=== PATIENT | male | born 1960 | race African-American/Black ===

== ENCOUNTER → 2022-07-28 15:06 | Outpatient (BNVA) | payer MEDICARE, SELFPAY | PROVIDERS: PCP Internal Medicine; Visit Provider Urology | DX: N52.9 Male erectile dysfunction, unspecified (principal); N48.6 Induration penis plastica | CPT/HCPCS: 99212 ==

== ENCOUNTER → 2022-11-12 14:24 | Outpatient (BNVA) | payer MEDICARE, SELFPAY | PROVIDERS: PCP Internal Medicine; Visit Provider Urology | DX: N52.9 Male erectile dysfunction, unspecified (principal); N48.6 Induration penis plastica | CPT/HCPCS: Q3014 ==

== ENCOUNTER → 2023-02-11 11:31 | Outpatient (BNVA) | payer MEDICARE, SELFPAY | PROVIDERS: PCP Internal Medicine; Visit Provider Urology | DX: N52.9 Male erectile dysfunction, unspecified (principal); N48.6 Induration penis plastica | CPT/HCPCS: Q3014 ==

== ENCOUNTER 2023-08-02 12:13 | Outpatient (REF) | payer MEDICARE, SELFPAY ==
[2023-08-02 15:14] LABS: Prostate Specific Antigen 4.68 ng/mL (<0.05-4.0)
== END 2023-08-02 12:14 | disposition home or self-care (01) ==
LOC: HO.LAB 12:13
PROVIDERS: PCP Internal Medicine; Visit Provider Urology
DX: Z12.5 Encounter for screening for malignant neoplasm of prostate (principal); N52.9 Male erectile dysfunction, unspecified
CPT/HCPCS: 36415; 84153

== ENCOUNTER 2023-08-19 10:46 | Outpatient (AMB) | payer MEDICARE, SELFPAY ==
--- NOTE | 2023-08-19 10:48 | A.OFFVIS_ITS ---
Intake Intake Visit Reasons: 6m/PSA(set) Intake Note: Call Allergies Sulfa (Sulfonamide Antibiotics) Allergy (Mild, Verified 08/19/23 10:48) Unknown Sulfacet-R Allergy (Unknown, Uncoded 08/19/23 10:48) Unknown Medication List - Last Reconciled 08/19/23 by Luciano Pandya MD atorvastatin 40 mg PO DAILY tadalafil 20 mg PO ONCE PRN 30 days tadalafil 5 mg PO DAILY 90 days HPI HPI Comments History of Present Illness Details Modesto DOWNEY is a very pleasant male. He is a patient of Dr Navarro. He is seen for the following urologic conditions - erectile dysfunction - Peyronie's disease Telemedicine Evaluation 15 min Consultation Maven[employer] Neto Video attempted Borderline elevation of PSA 08/20 4.7 Four month follow-up PSA Refill tadalafil Instructions for no coffee morning of test, and no sex the night before. Has been taking caffeine pills to lose weight Erectile dysfunction:? Peyronie's disease stable ?Good response to daily tadalafil ? He presents today for?for continued evaluation and management of erectile dysfunction.? Symptoms have been present for/since?over several years.? Current treatment includes?Viagra/sildenafil.? At this time he experiences erections?12/16 are partial and adequate for vaginal penetration, that undergo rapid detumesence after penetration, HAKEEM 12- 16 Mild-Moderate ED.? Currently they are?has a partner who is interested in treatment.? Overall he is ?satisfied with the current management.? Therapeutic plan includes?increasing dose of oral medication.? Peyronie's Disease:? Stabilized and curve reduced - still functional ? The patient presents for?further evaluation for penile disorder.? Primary complaint is ?penile curvature, to the right, dorsally.? At this time he experiences?partial erections sufficient for penetrative intercourse.? [place] has?is possible but painful.? Prior management includes?no treatment to date.? Natural history of Peyronie's and treatment options have bee?use of vacuum device protocol, use of inflammatory washing machine striper Review of Systems Const All systems reviewed & are unremarkable except as noted in HPI and below Reports no additional complaints Resp Reports no additional complaints GI Reports no additional complaints Reports as per HPI Musc Reports no additional complaints Physical Exam Telemedicine evaluation Appropriate responses Regular breathing rate and rhythm HEENT Head: Yes normal to inspection Ears: hearing grossly normal bilaterally Eyes General: appearance normal, both eyes and all related structures Neck Neck: Yes normal visual inspection Chest Chest palpation & inspection: normal inspection of the chest Resp Effort & Inspection: normal respiratory effort and able to speak in complete sentences Assessment & Plan Assessment & Plan (1) Elevated PSA: Code(s): R97.20 - Elevated prostate specific antigen [PSA] (2) Erectile dysfunction: Code(s): N52.9 - Male erectile dysfunction, unspecified (3) Peyronie's disease: Code(s): N48.6 - Induration penis plastica Plan Four month follow-up PSA Orders: Orders PSA,Total (Free>4and<10) 4 Months R97.20 - Elevated prostate specific antigen [PSA] Medications: Refilled 2 tadalafil 5 mg PO DAILY 90 days 90 tabs 1RF sexual activity N52.9 - Male erectile dysfunction, unspecified tadalafil On demand medication take 60 minutes before intended activity 20 mg PO ONCE 30 days PRN 30 tabs 0RF sexual activity N52.9 - Male erectile dysfunction, unspecified Patient Instructions: Imaging studies, laboratory and physical exam results were discussed and reviewed in detail. No major barriers to patient understanding were identified. An opportunity to ask questions regarding the treatment plan was provided. All questions were answered. The patient expressed understanding and agreement with the above treatment plan. The patient is aware they should contact our office by phone for worsening of their current condition or the appearance of new urologic symptoms. Compliance is encouraged with any medications and followup testing that is ordered. It is a privilege to participate in the urologic care of your patient. If you have any questions or concerns regarding treatment for the above conditions, or other urologic issues, please do not hesitate to contact me. The office telephone contact is [phone]. This note is constructed using voice recognition software. While every effort has been made to ensure accuracy plumber helper errors may have been included. Yours sincerely, Dr Luciano Pandya MD, [facility] - Urology Providers of Expert, Compassionate Care for the Genitourinary System Telehealth Telehealth Location of provider rendering services: practice address Location of patient: address on file Patient Identification confirmed using: Name, : Yes Telehealth method: video Patient verbally consented to treatment: Yes Patient verbally consented to billing insurance company: Yes Patient informed of any privacy concerns related to visit: Yes Coding Level of Care Code Tele Est Pt Level 4 (43694) Diagnoses Elevated PSA R97.20 Erectile dysfunction N52.9 Peyronie's disease N48.6
== END 2023-08-19 11:17 | disposition home or self-care (01) ==
LOC: HO.HUSH 10:47
PROVIDERS: PCP Internal Medicine; Visit Provider Urology
DX: R97.20 Elevated prostate specific antigen [PSA] (principal); N52.9 Male erectile dysfunction, unspecified; N48.6 Induration penis plastica
CPT/HCPCS: 99213

== ENCOUNTER → 2023-08-19 10:46 | Outpatient (BNVA) | payer MEDICARE, SELFPAY | PROVIDERS: PCP Internal Medicine; Visit Provider Urology ==

== ENCOUNTER 2023-12-21 10:42 | Outpatient (AMB) | payer MEDICARE, SELFPAY ==
--- NOTE | 2023-12-21 11:14 | MHC.OFFVIS ---
Intake Intake Visit Reasons: 4m/PSA(PSA?) Intake Note: Patient is Present for Follow Up Urology Medication: Tadalafil Antibiotic Allergies: Sulfa Blood Thinners: None Allergies Sulfa (Sulfonamide Antibiotics) Allergy (Mild, Verified 12/21/23 11:17) Unknown Sulfacet-R Allergy (Unknown, Uncoded 12/21/23 11:17) Unknown HPI HPI Comments History of Present Illness Details Modesto DOWNEY is a very pleasant male. He is a patient of Dr Navarro. He is seen for the following urologic conditions - erectile dysfunction - Peyronie's disease Did not complete PSA Has concerns about erectile function with 5 mg tadalafil. Did better with 10 mg daily Prescription provided Discussed add on 100 mg sildenafil as needed Prescription provided Repeat PSA in 6 months Borderline elevation of PSA 08/20 4.7 Erectile dysfunction:? Peyronie's disease stable ?Good response to daily tadalafil ? He presents today for?for continued evaluation and management of erectile dysfunction.? Symptoms have been present for/since?over several years.? Current treatment includes?Viagra/sildenafil.? At this time he experiences erections?12/16 are partial and adequate for vaginal penetration, that undergo rapid detumesence after penetration, HAKEEM 12-16 Mild-Moderate ED.? Currently they are?has a partner who is interested in treatment.? Peyronie's Disease:? Stabilized and curve reduced - still functional ? The patient presents for?further evaluation for penile disorder.? Primary complaint is ?penile curvature, to the right, dorsally.? At this time he experiences?partial erections sufficient for penetrative intercourse.? [place] has?is possible but painful.? Prior management includes?no treatment to date.? Natural history of Peyronie's and treatment options have been offered with?use of vacuum device protocol, use of inflammatory steep tender Review of Systems Const Denies chills and Denies fever(s) Card Reports no additional complaints and Denies syncope Resp Denies cough GI Denies abdominal pain and Denies heartburn Reports as per HPI and Denies change in libido Neuro Denies syncope Psych Denies change in libido Endo Denies change in libido Physical Exam Const General: cooperative, healthy appearing, comfortable and no acute distress Orientation/consciousness: patient oriented x3 HEENT Face and sinus: Yes normal facial exam Mouth: moist mucous membranes Neck Neck: Yes normal visual inspection, Yes full ROM and Yes trachea midline Chest Chest palpation & inspection: normal inspection of the chest Resp Effort & Inspection: normal respiratory effort, able to speak in complete sentences and no respiratory distress GI Inspection: Yes normal to inspection Back/Spine/Pelvis Cervical Spine: normal cervical lordosis Thoracic/Lumbar Spine: thoracic and lumbar spine normal to inspection Skin General skin exam: no rashes or lesions noted Neuro General: patient oriented x3, gait normal, tone normal and moves all extremities Extrem General: Yes normal to inspection and Yes capillary refill normal Assessment & Plan Assessment & Plan (1) Elevated PSA: Code(s): R97.20 - Elevated prostate specific antigen [PSA] (2) Erectile dysfunction: Code(s): N52.9 - Male erectile dysfunction, unspecified Plan Six-month follow-up PSA tele Orders: Orders Prostate Specific Antigen 6 Months R97.20 - Elevated prostate specific antigen [PSA] Medications: New sildenafil administer 60 minutes before intended activity 100 mg PO ONCE PRN 30 tabs 1RF sexual activity 30 days N52.9 - Male erectile dysfunction, unspecified Patient Instructions: Imaging studies, laboratory and physical exam results were discussed and reviewed in detail. No major barriers to patient understanding were identified. An opportunity to ask questions regarding the treatment plan was provided. All questions were answered. The patient expressed understanding and agreement with the above treatment plan. The patient is aware they should contact our office by phone for worsening of their current condition or the appearance of new urologic symptoms. Compliance is encouraged with any medications and followup testing that is ordered. It is a privilege to participate in the urologic care of your patient. If you have any questions or concerns regarding treatment for the above conditions, or other urologic issues, please do not hesitate to contact me. The office telephone contact is [phone]. This note is constructed using voice recognition software. While every effort has been made to ensure accuracy corrections counselor errors may have been included. Yours sincerely, Dr Luciano Pandya MD, [facility] - Urology Providers of Expert, Compassionate Care for the Genitourinary System Coding Level of Care Code Est Pt Level 4 (69540) Diagnoses Elevated PSA R97.20 Erectile dysfunction N52.9
== END 2023-12-21 11:40 | disposition home or self-care (01) ==
PROVIDERS: PCP Internal Medicine; Visit Provider Urology
DX: R97.20 Elevated prostate specific antigen [PSA] (principal); N52.9 Male erectile dysfunction, unspecified
CPT/HCPCS: 99214

== ENCOUNTER → 2023-12-21 10:42 | Outpatient (BNVA) | payer MEDICARE, SELFPAY | PROVIDERS: PCP Internal Medicine; Visit Provider Urology | DX: R97.20 Elevated prostate specific antigen [PSA] (principal); N52.9 Male erectile dysfunction, unspecified | CPT/HCPCS: 99212 ==

== ENCOUNTER 2024-06-18 12:11 | Outpatient (REF) | payer MEDICARE, SELFPAY | END 2024-06-18 12:12 | disposition home or self-care (01) | LOC: HO.LAB 12:11 | PROVIDERS: Visit Provider Urology | DX: R97.20 Elevated prostate specific antigen [PSA] (principal); Z12.5 Encounter for screening for malignant neoplasm of prostate | CPT/HCPCS: 36415; 84153 ==

== ENCOUNTER 2024-06-20 10:51 | Outpatient (AMB) | payer MEDICARE, SELFPAY ==
--- NOTE | 2024-06-20 10:51 | MHC.OFFVIS ---
Intake Visit Reasons: 6M Follow Up- PSA(set) Intake Note: Patient is Present for Telephone Follow Up PSA Urology Med: Sildenafil, Tadalafil Antibiotic Allergy: Sulfa Blood Thinner: None Piggery Worker Required: No Allergies Sulfa (Sulfonamide Antibiotics) Allergy (Mild, Verified 06/20/24 10:58) Unknown Sulfacet-R Allergy (Unknown, Uncoded 06/20/24 10:58) Unknown HPI Comments Details: Modesto DOWNEY is a very pleasant male. He is a patient of Dr Navarro. He is seen for the following urologic conditions - erectile dysfunction - Peyronie's disease Telemedicine Evaluation 15 min Consultation SnapYeti Neto Video attempted Repeat PSA has maintain elevation Recommend prostate biopsy Erectile dysfunction on combination daily tadalafil 10 mg with on demand sildenafil 100 mg Borderline elevation of PSA 08/20 4.7, 06/20 5.4 Erectile dysfunction:? Peyronie's disease stable ?Good response to daily tadalafil ? He presents today for?for continued evaluation and management of erectile dysfunction.? Symptoms have been present for/since?over several years.? Current treatment includes?Viagra/sildenafil.? At this time he experiences erections?12/16 are partial and adequate for vaginal penetration, that undergo rapid detumesence after penetration, HAKEEM 12-16 Mild-Moderate ED.? Currently they are?has a partner who is interested in treatment.? Peyronie's Disease:? Stabilized and curve reduced - still functional ? The patient presents for?further evaluation for penile disorder.? Primary complaint is penile curvature, to the right, dorsally.? At this time he experiences?partial erections sufficient for penetrative intercourse.? [place] has?is possible but painful.? Prior management includes?no treatment to date.? Natural history of Peyronie's and treatment options have been offered with?use of vacuum device protocol, use of inflammatory ux visual designer Review of Systems Const All systems reviewed & are unremarkable except as noted in HPI and below Reports no additional complaints Resp Reports no additional complaints GI Reports no additional complaints Reports as per HPI Musc Reports no additional complaints Physical Exam Telemedicine evaluation Appropriate responses Regular breathing rate and rhythm HEENT Head: Yes normal to inspection Ears: hearing grossly normal bilaterally Eyes General: appearance normal, both eyes and all related structures Neck Neck: Yes normal visual inspection Chest Chest palpation & inspection: normal inspection of the chest Resp Effort & Inspection: normal respiratory effort and able to speak in complete sentences Telehealth Telehealth Telehealth Platform: SnapYeti Location of provider rendering services: practice address Location of patient: address on file Patient Identification confirmed using: Name, : Yes Telehealth method: video Patient verbally consented to treatment: Yes Patient verbally consented to billing insurance company: Yes Patient informed of any privacy concerns related to visit: Yes Minutes spent on Phone/Video with Pt.: 15 Assessment & Plan Assessment & Plan (1) Peyronie's disease: Code(s): N48.6 - Induration penis plastica Category: Medical (2) Erectile dysfunction: Code(s): N52.9 - Male erectile dysfunction, unspecified Category: Medical (3) Elevated PSA: Code(s): R97.20 - Elevated prostate specific antigen [PSA] Category: Medical Plan Plan prostate biopsy Risks and benefits regarding trans rectal ultrasound with prostate biopsy were discussed. Options of continued surveillance, no treatment and biopsy were offered. The risks include but are not limited to, urinary tract infection, sepsis, difficulty urinating, bleeding into the rectum or bladder that requires intervention and transfusion,and failure to diagnose prostate cancer. The patient understands the options and the risks involved. They wish to proceed. Printed information was provided to ensure he remains off anticoagulation for the appropriate length of time. He may require cardiology or PCP clearance. An antibiotic will be administered prior to, and following the procedure Medications: New levofloxacin take 1 tab the day before, day of and day after biopsy 250 mg PO DAILY 3 days 3 tabs 0RF Refilled tadalafil 10 mg PO DAILY 90 days 90 tabs 1RF sexual activity N52.9 - Male erectile dysfunction, unspecified Patient Instructions: Imaging studies, laboratory and physical exam results were discussed and reviewed in detail. No major barriers to patient understanding were identified. An opportunity to ask questions regarding the treatment plan was provided. All questions were answered. The patient expressed understanding and agreement with the above treatment plan. The patient is aware they should contact our office by phone for worsening of their current condition or the appearance of new urologic symptoms. Compliance is encouraged with any medications and followup testing that is ordered. It is a privilege to participate in the urologic care of your patient. If you have any questions or concerns regarding treatment for the above conditions, or other urologic issues, please do not hesitate to contact me. The office telephone contact is [phone]. This note is constructed using voice recognition software. While every effort has been made to ensure accuracy steward/stewardess third errors may have been included. Yours sincerely, Dr Luciano Pandya MD, [facility] - Urology Providers of Expert, Compassionate Care for the Genitourinary System Coding Level of Care Code Tele Est Pt Level 4 (81565) Diagnoses Peyronie's disease N48.6 Erectile dysfunction N52.9 Elevated PSA R97.20
== END 2024-06-20 11:30 | disposition home or self-care (01) ==
LOC: HO.HUSH 10:51
PROVIDERS: PCP Internal Medicine; Visit Provider Urology
DX: N48.6 Induration penis plastica (principal); N52.9 Male erectile dysfunction, unspecified; R97.20 Elevated prostate specific antigen [PSA]
CPT/HCPCS: 99214

== ENCOUNTER → 2024-06-20 10:51 | Outpatient (BNVA) | payer MEDICARE, SELFPAY | PROVIDERS: PCP Internal Medicine; Visit Provider Urology ==

== ENCOUNTER 2024-07-24 07:41 | Outpatient (REF) | payer MEDICARE, SELFPAY ==
--- NOTE | 2024-07-24 08:35 | W.PM.OPN ---
Operative Note Operative Note Date of Service: 07/24/24 Narrative: Preoperative diagnosis: Elevated PSA Postoperative diagnosis: Elevated PSA Procedure: 1. transrectal ultrasound measurement of prostate 2. transrectal ultrasound-guided pudendal nerve block 3. transrectal ultrasound-guided prostate biopsy 12 core Surgeon: Dr. Luciano Pandya Anesthetic: 10cc 1% lidocaine Indications for procedure: Elevated PSA 5.4 Counselling: Technical aspects, risks and benefits of proposed procedure were discussed in full. All questions have been answered, written consent has been obtained and patient agrees to proceed. Procedure: The patient was brought into the procedure area and placed in a left lateral decubitus position. Patient identity confirmed. Perioperative antibiotics confirmed. Safety pause time out performed. BRANDON was performed to dilate rectal sphincter Iodine 10cc with 60 cc gel was placed per rectum to reduce infection risk using a catheter tip syringe. 8 Hz Maxime rectal end-fire ultrasound probe was placed transrectally without difficulty. The prostate was visualized. Seminal vesicles were normal. Prostate margins were clearly demarcated. Bladder was seen superiorly. No cystic structures were noted No calcifications were noted at the surgical margin The prostate was otherwise homogeneous in nature The prostate was measured in 3 dimensions Prostatic Width: 4.8 cm Prostatic Height: 3.9 cm Urethral Length: 4.6 cm Total volume equals : 45 ml An ultrasound-guided pudendal nerve block was performed using a 22 gauge spinal needle in the sagittal plane. 4 cc of 1% lidocaine placed at the junction of each seminal vesicle and 2 cc placed at the apex of the prostate. A 12 core biopsy was performed with 6 cores each side using an 18 gauge prostate biopsy gun. Two cores each were taken at the prostate apex, mid and base on each side. Cores were spaced between lateral and medial aspects. Each core was examined as placed on specimen foam as part of environmental quality analyst to ensure a minimum 1 cm of length and minimal discontinuity. He tolerated the procedure well with minimal rectal bleeding. Blood pressure remained stable following procedure. He was able to ambulate to bathroom after 5 minutes. Printed instructions regarding antibiotic use and common adverse events from the procedure such as low-grade temperature, potential infection and bleeding were given. He understands to call the office or go to an emergency room should any of these events arise. Pathology: 12 core prostate biopsy. CPT code 06994: Transrectal ultrasound; this is a diagnostic test for evaluation of the prostate and surrounding structures, looking for abnormalities or suspicious areas worrisome for cancer CPT code 51503: Biopsy, prostate; needle or punch, single or multiple, any approach CPT code 66828: Ultrasonic guidance for needle placement (eg, biopsy, aspiration, injection, localization device), imaging supervision and interpretation
[2024-07-24] MEDS: Lidocaine HCl 1 % MPF 5 ML VIAL 10 ML SUBCUT (09:08)
== END 2024-07-24 07:42 | disposition home or self-care (01) ==
LOC: HO.US 07:41
PROVIDERS: PCP Internal Medicine; Visit Provider Urology
DX: R97.20 Elevated prostate specific antigen [PSA] (principal)
CPT/HCPCS: 55700; 76942; 88305; 88344

== ENCOUNTER → 2024-07-24 07:41 | Outpatient (BNV) | payer MEDICARE, SELFPAY | PROVIDERS: PCP Internal Medicine; Visit Provider Urology | DX: R97.20 Elevated prostate specific antigen [PSA] (principal) | CPT/HCPCS: 55700; 76872; 76942 ==

== ENCOUNTER 2024-08-09 12:34 | Outpatient (AMB) | payer MEDICARE, SELFPAY ==
--- NOTE | 2024-08-09 12:35 | A.OFFVIS_ITS ---
Intake Visit Reasons: Prostate biopsy results Intake Note: Patient is Present for Telephone Follow Up biopsy Urology Med: Tadalafil, Sildenafil Antibiotic Allergy: Sulfa Blood Thinner: None Recent PSA: 5.40 Systems Architect Required: No Accompanied by: Self / Same As Patient Allergies Sulfa (Sulfonamide Antibiotics) Allergy (Mild, Verified 08/09/24 12:51) Unknown Sulfacet-R Allergy (Unknown, Uncoded 08/09/24 12:51) Unknown HPI Comments Details: Modesto DOWNEY is a very pleasant male. He is a patient of Dr Navarro. He is seen for the following urologic conditions - erectile dysfunction - Peyronie's disease - prostate cancer grade group 2 low volume Telemedicine Evaluation 15 min Consultation Obsorb Neto Video attempted Erectile dysfunction on combination daily tadalafil 10 mg with on demand sildenafil 100 mg Borderline elevation of PSA 08/20 4.7, 06/20 5.4 Prostate Cancer Grade Group 2, Low Volume disease PSA at diagnosis 5.4 Volume at TRUS 45 g PT1c Histologic type: Prostatic adenocarcinoma, acinar type [place] score: 4+3=7 (left base lateral 5%), 3+3=6 (left mid lateral 20%) % of tissue involved: Less than 5% of all tissue examined Periprostatic fat inv.: Not identified Seminal vesicle inv.: Not identified Perineural inv.: Not identified LVI: Not identified Erectile dysfunction:? Peyronie's disease stable ?Good response to daily tadalafil ? He presents today for?for continued evaluation and management of erectile dysfunction.? Symptoms have been present for/since?over several years.? Current treatment includes?Viagra/sildenafil.? At this time he experiences erections?12/16 are partial and adequate for vaginal penetration, that undergo rapid detumesence after penetration, HAKEEM 12- 16 Mild-Moderate ED.? Currently they are?has a partner who is interested in treatment.? Peyronie's Disease:? Stabilized and curve reduced - still functional ? The patient presents for?further evaluation for penile disorder.? Primary complaint is penile curvature, to the right, dorsally.? At this time he experiences?partial erections sufficient for penetrative intercourse.? [place] has?is possible but painful.? Prior management includes?no treatment to date.? Natural history of Peyronie's and treatment options have been offered with?use of vacuum device protocol, use of inflammatory heel lining paster Review of Systems Const All systems reviewed & are unremarkable except as noted in HPI and below Reports no additional complaints Resp Reports no additional complaints GI Reports no additional complaints Reports as per HPI Musc Reports no additional complaints Physical Exam Telemedicine evaluation Appropriate responses Regular breathing rate and rhythm HEENT Head: Yes normal to inspection Ears: hearing grossly normal bilaterally Eyes General: appearance normal, both eyes and all related structures Neck Neck: Yes normal visual inspection Chest Chest palpation & inspection: normal inspection of the chest Resp Effort & Inspection: normal respiratory effort and able to speak in complete sentences Telehealth Telehealth Telehealth Platform: Obsorb Location of provider rendering services: practice address Location of patient: address on file Patient Identification confirmed using: Name, : Yes Telehealth method: video Patient verbally consented to treatment: Yes Patient verbally consented to billing insurance company: Yes Patient informed of any privacy concerns related to visit: Yes Minutes spent on Phone/Video with Pt.: 15 Assessment & Plan Assessment & Plan (1) Prostate cancer: Code(s): C61 - Malignant neoplasm of prostate Category: Medical (2) Elevated PSA: Code(s): R97.20 - Elevated prostate specific antigen [PSA] Category: Medical Plan Prostate MRI Prolaris Orders: Orders MR pelvis wo/w con 4 Weeks C61 - Malignant neoplasm of prostate Patient Instructions: Imaging studies, laboratory and physical exam results were discussed and reviewed in detail. No major barriers to patient understanding were identified. An opportunity to ask questions regarding the treatment plan was provided. All questions were answered. The patient expressed understanding and agreement with the above treatment plan. The patient is aware they should contact our office by phone for worsening of their current condition or the appearance of new urologic symptoms. Compliance is encouraged with any medications and followup testing that is ordered. It is a privilege to participate in the urologic care of your patient. If you have any questions or concerns regarding treatment for the above conditions, or other urologic issues, please do not hesitate to contact me. The office telephone contact is [phone]. This note is constructed using voice recognition software. While every effort has been made to ensure accuracy controller coal or ore errors may have been included. Yours sincerely, Dr Luciano Pandya MD, [facility] - Urology Providers of Expert, Compassionate Care for the Genitourinary System Coding Level of Care Code Tele Est Pt Level 4 (53262) Diagnoses Prostate cancer C61 Elevated PSA R97.20
== END 2024-08-09 14:46 | disposition home or self-care (01) ==
LOC: HO.HUSH 12:34
PROVIDERS: PCP Internal Medicine; Visit Provider Urology
DX: C61 Malignant neoplasm of prostate (principal); R97.20 Elevated prostate specific antigen [PSA]
CPT/HCPCS: 99214

== ENCOUNTER → 2024-08-09 12:34 | Outpatient (BNVA) | payer MEDICARE, SELFPAY | PROVIDERS: PCP Internal Medicine; Visit Provider Urology ==

== ENCOUNTER 2024-09-25 10:07 | Outpatient (AMB) | payer MEDICARE, SELFPAY ==
--- NOTE | 2024-09-25 10:31 | MHC.OFFVIS ---
Intake Visit Reasons: 6w/MRI(set) Intake Note: Patient is Present for Follow Up MRI Urology Medication: Tadalafil, Sildenafil Antibiotic Allergies: Sulfa Antibiotics Blood Thinners: None Recent PSA: 05/2024- 5.40 MRI Prostate: 08/22/2024 Distribution Accounting Clerk Required: No Accompanied by: Self / Same As Patient Allergies Sulfa (Sulfonamide Antibiotics) Allergy (Mild, Verified 09/25/24 10:33) Unknown Sulfacet-R Allergy (Unknown, Uncoded 09/25/24 10:33) Unknown Medication List - Last Reconciled 09/25/24 by Luciano Pandya MD atorvastatin 40 mg PO DAILY sildenafil 100 mg PO ONCE PRN 30 days tadalafil 20 mg PO ONCE PRN 30 days tadalafil 10 mg PO DAILY 90 days HPI Comments Details: Modesto DOWNEY is a very pleasant male. He is a patient of Dr Navarro. He is seen for the following urologic conditions - erectile dysfunction - Peyronie's disease - prostate cancer grade group 2 low volume Follow-up imaging for low volume grade group 3 prostate cancer Erectile dysfunction on combination daily tadalafil 10 mg with on demand sildenafil 100 mg Discussed prostate cancer Printed results of biopsy, MRI and Prolaris Based on low volume disease would start with active surveillance Does have urinary symptoms so would benefit from finasteride Interested in penile pump - information provided Prostate Cancer Grade Group 3, Low Volume disease 07/21 PSA at diagnosis 5.4 Volume at TRUS 45 g PT1c Histologic type: Prostatic adenocarcinoma, acinar type [place]utherford score: 4+3=7 (left base lateral 5%), 3+3=6 (left mid lateral 20%) % of tissue involved: Less than 5% of all tissue examined Periprostatic fat inv.: Not identified Seminal vesicle inv.: Not identified Perineural inv.: Not identified LVI: Not identified Staging information MRI - 1.1 cm anterior stromal lesion PI-RADS 4 well contained Prolaris - cell cycle score 3.3, based on clinical features suggest single modal therapy Erectile dysfunction:? Peyronie's disease stable ?Good response to daily tadalafil ? He presents today for?for continued evaluation and management of erectile dysfunction.? Symptoms have been present for/since?over several years.? Current treatment includes?Viagra/sildenafil.? At this time he experiences erections?/ are partial and adequate for vaginal penetration, that undergo rapid detumesence after penetration, HAKEEM 12-16 Mild-Moderate ED.? Currently they are?has a partner who is interested in treatment.? Peyronie's Disease:? Stabilized and curve reduced - still functional ? The patient presents for?further evaluation for penile disorder.? Primary complaint is penile curvature, to the right, dorsally.? At this time he experiences?partial erections sufficient for penetrative intercourse.? [place] has?is possible but painful.? Prior management includes?no treatment to date.? Natural history of Peyronie's and treatment options have been offered with?use of vacuum device protocol, use of inflammatory flatbed stitcher Review of Systems Const Denies chills and Denies fever(s) Card Reports no additional complaints and Denies syncope Resp Denies cough GI Denies abdominal pain and Denies heartburn Reports as per HPI and Denies change in libido Neuro Denies syncope Psych Denies change in libido Endo Denies change in libido Physical Exam Const General: cooperative, healthy appearing, comfortable and no acute distress Orientation/consciousness: patient oriented x3 HEENT Face and sinus: Yes normal facial exam Mouth: moist mucous membranes Neck Neck: Yes normal visual inspection, Yes full ROM and Yes trachea midline Chest Chest palpation & inspection: normal inspection of the chest Resp Effort & Inspection: normal respiratory effort, able to speak in complete sentences and no respiratory distress GI Inspection: Yes normal to inspection Back/Spine/Pelvis Cervical Spine: normal cervical lordosis Thoracic/Lumbar Spine: thoracic and lumbar spine normal to inspection Skin General skin exam: no rashes or lesions noted Neuro General: patient oriented x3, gait normal, tone normal and moves all extremities Extrem General: Yes normal to inspection and Yes capillary refill normal Assessment & Plan Assessment & Plan (1) Erectile dysfunction: Code(s): N52.9 - Male erectile dysfunction, unspecified Category: Medical (2) Prostate cancer: Code(s): C61 - Malignant neoplasm of prostate Category: Medical Plan Four month follow-up PSA office Orders: Orders Prostate Specific Antigen 4 Months C61 - Malignant neoplasm of prostate Medications: New finasteride 5 mg PO DAILY 90 days 90 tabs 1RF C61 - Malignant neoplasm of prostate, N13.8 - Other obstructive and reflux uropathy, N40.1 - Benign prostatic hyperplasia with lower urinary tract symptoms, R33.9 - Retention of urine, unspecified Patient Instructions: Imaging studies, laboratory and physical exam results were discussed and reviewed in detail. No major barriers to patient understanding were identified. An opportunity to ask questions regarding the treatment plan was provided. All questions were answered. The patient expressed understanding and agreement with the above treatment plan. The patient is aware they should contact our office by phone for worsening of their current condition or the appearance of new urologic symptoms. Compliance is encouraged with any medications and followup testing that is ordered. It is a privilege to participate in the urologic care of your patient. If you have any questions or concerns regarding treatment for the above conditions, or other urologic issues, please do not hesitate to contact me. The office telephone contact is [phone]. This note is constructed using voice recognition software. While every effort has been made to ensure accuracy civil preparedness officer errors may have been included. Yours sincerely, Dr Luciano Pandya MD, [facility] - Urology Providers of Expert, Compassionate Care for the Genitourinary System Coding Level of Care Code Est Pt Level 4 (90958) Diagnoses Erectile dysfunction N52.9 Prostate cancer C61
== END 2024-09-25 10:58 | disposition home or self-care (01) ==
LOC: HO.HUSH 10:08
PROVIDERS: PCP Internal Medicine; Visit Provider Urology
DX: N52.9 Male erectile dysfunction, unspecified (principal); C61 Malignant neoplasm of prostate
CPT/HCPCS: 99214

== ENCOUNTER → 2024-09-25 10:07 | Outpatient (BNVA) | payer MEDICARE, SELFPAY | PROVIDERS: PCP Internal Medicine; Visit Provider Urology | DX: N52.9 Male erectile dysfunction, unspecified (principal); N40.1 Benign prostatic hyperplasia with lower urinary tract symptoms; N13.8 Other obstructive and reflux uropathy; N48.6 Induration penis plastica; R33.8 Other retention of urine; C61 Malignant neoplasm of prostate; Z79.899 Other long term (current) drug therapy | CPT/HCPCS: 99212 ==

== ENCOUNTER 2025-01-03 09:11 | Outpatient (REF) | payer MEDICARE, SELFPAY ==
--- OUTSIDE RECORDS SUMMARY | 2025-01-03 09:15 | XMS_ITS | Clinical Summary ---
Author Organization [facility] ity Address [address] [place] [address] Care Team Providers Care Organic Chemistry Professor Name Role Phone Unavailable Primary Care Provider Unavailabl e Social History Tobacco Use Types Packs/Day Years Used Date Smoking Tobacco: Never Assessed Sex and Gender Information Value Date Recorded Sex Assigned at Not on file Gender Identity Not on file Sexual Orientation Not on file Plan of Treatment Health Maintenance Due Date Last Done Comments DTaP,Tdap,and Td Vaccines (1 - Tdap) 02/20/1979 Zoster Vaccines (1 of 2) 02/20/2010 Cholesterol Screening (Lipid Panel) 10/31/2022 Colorectal Cancer Screening: Colonoscopy 10/31/2022 Depression Screening 10/31/2022 HIV Screening 10/31/2022 Hepatitis C Screening 10/31/2022 Social Influencers of Health Screening 10/31/2022 COVID-19 Vaccine ( - 2023-2 5 season) 2024 Influenza Vaccine (#1) 2024 RSV Immunization Patients 60 + Years Old (1 - 1-dose 75+ series) 02/20/2035 HIB Vaccines Aged Out No longer eligi ble based on patient's age to complete this topic HPV Vaccines Aged Out No longer eligi ble based on patient's age to complete this topic Hepatitis A Vaccines Aged Out No long er eligible based on patient's age to complete this topic Hepatitis B Vaccines Aged Out No long er eligible based on patient's age to complete this topic IPV Vaccines Aged Out No longer eligi ble based on patient's age to complete this topic MMR Vaccines Aged Out No longer eligi ble based on patient's age to complete this topic Meningococcal ACWY Vaccine Aged Out N o longer eligible based on patient's age to complete this topic Pneumococcal Vaccine: Pediat rics (0 to 5 Years) and At-Risk Patients (6 to 64 Years) Aged Out No longer eligible b ased on patient's age to complete this topic RSV Immunization Patients Un nandini 20 months Aged Out No longer eligible b ased on patient's age to complete this topic Varicella Vaccines Aged Out No longer eligible based on patient's age to complete this topic
[2025-01-03 10:28] LABS: Prostate Specific Antigen 6.31 ng/mL (<0.05-4.0)
== END 2025-01-03 09:12 | disposition home or self-care (01) ==
LOC: HO.LAB 09:11
PROVIDERS: Visit Provider Urology
DX: C61 Malignant neoplasm of prostate (principal); Z12.5 Encounter for screening for malignant neoplasm of prostate
CPT/HCPCS: 36415; 84153

== ENCOUNTER 2025-01-23 11:40 | Outpatient (AMB) | payer MEDICARE, SELFPAY ==
--- NOTE | 2025-01-23 11:44 | MHC.OFFVIS ---
Intake Visit Reasons: 4m/PSA Intake Note: Patient is present for 4M/PSA Urology Medication:TADALAFIL,SILDENAFIL,FINASTERIDE Antibiotic Allergy:SULFA Blood Thinner:NONE Radiological Technician Required: No Allergies Sulfa (Sulfonamide Antibiotics) Allergy (Mild, Verified 01/23/25 11:45) Unknown Sulfacet-R Allergy (Unknown, Uncoded 01/23/25 11:45) Unknown HPI Comments Details: Modesto DOWNEY is a very pleasant male. He is a patient of Dr Navarro. He is seen for the following urologic conditions - erectile dysfunction - Peyronie's disease - prostate cancer grade group 2 low volume Four month follow-up Did not take finasteride since had adverse side effect at 5 mg daily Will try 1 mg daily Restart tadalafil 10 mg daily Interested in penile pump - information provided PSA - 01/22 6.3 Prostate Cancer Grade Group 3, Low Volume disease 07/21 PSA at diagnosis 5.4 Volume at TRUS 45 g PT1c Histologic type: Prostatic adenocarcinoma, acinar type [place] score: 4+3=7 (left base lateral 5%), 3+3=6 (left mid lateral 20%) % of tissue involved: Less than 5% of all tissue examined Periprostatic fat inv.: Not identified Seminal vesicle inv.: Not identified Perineural inv.: Not identified LVI: Not identified Staging information 08/21 MRI - 1.1 cm anterior stromal lesion PI-RADS 4 well contained Prolaris - cell cycle score 3.3, based on clinical features suggest single modal therapy Erectile dysfunction:? Peyronie's disease stable ?Good response to daily tadalafil ? He presents today for?for continued evaluation and management of erectile dysfunction.? Symptoms have been present for/since?over several years.? Current treatment includes?Viagra/sildenafil.? At this time he experiences erections?12/16 are partial and adequate for vaginal penetration, that undergo rapid detumesence after penetration, HAKEEM 12-16 Mild-Moderate ED.? Currently they are?has a partner who is interested in treatment.? Peyronie's Disease:? Stabilized and curve reduced - still functional ? The patient presents for?further evaluation for penile disorder.? Primary complaint is penile curvature, to the right, dorsally.? At this time he experiences?partial erections sufficient for penetrative intercourse.? [place] has?is possible but painful.? Prior management includes?no treatment to date.? Natural history of Peyronie's and treatment options have been offered with?use of vacuum device protocol, use of inflammatory health sciences program coordinator Review of Systems Const Denies chills and Denies fever(s) Card Reports no additional complaints and Denies syncope Resp Denies cough GI Denies abdominal pain and Denies heartburn Reports as per HPI and Denies change in libido Neuro Denies syncope Psych Denies change in libido Endo Denies change in libido Physical Exam Const General: cooperative, healthy appearing, comfortable and no acute distress Orientation/consciousness: patient oriented x3 HEENT Face and sinus: Yes normal facial exam Mouth: moist mucous membranes Neck Neck: Yes normal visual inspection, Yes full ROM and Yes trachea midline Chest Chest palpation & inspection: normal inspection of the chest Resp Effort & Inspection: normal respiratory effort, able to speak in complete sentences and no respiratory distress GI Inspection: Yes normal to inspection Back/Spine/Pelvis Cervical Spine: normal cervical lordosis Thoracic/Lumbar Spine: thoracic and lumbar spine normal to inspection Skin General skin exam: no rashes or lesions noted Neuro General: patient oriented x3, gait normal, tone normal and moves all extremities Extrem General: Yes normal to inspection and Yes capillary refill normal Assessment & Plan Assessment & Plan (1) Erectile dysfunction: Code(s): N52.9 - Male erectile dysfunction, unspecified Category: Medical (2) Prostate cancer: Code(s): C61 - Malignant neoplasm of prostate Category: Medical Plan Four month follow-up PSA Low-dose finasteride Restart tadalafil Orders: Orders Prostate Specific Antigen 4 Months C61 - Malignant neoplasm of prostate Medications: Changed From finasteride 5 mg PO DAILY 90 days 90 tabs 1RF C61 - Malignant neoplasm of prostate, N13.8 - Other obstructive and reflux uropathy, N40.1 - Benign prostatic hyperplasia with lower urinary tract symptoms To finasteride 1 mg PO DAILY 90 days 90 tabs 1RF C61 - Malignant neoplasm of prostate, N13.8 - Other obstructive and reflux uropathy, N40.1 - Benign prostatic hyperplasia with lower urinary tract symptoms Refilled tadalafil 10 mg PO DAILY 90 days 90 tabs 1RF sexual activity N52.9 - Male erectile dysfunction, unspecified Patient Instructions: This note is constructed using voice recognition software. While every effort has been made to ensure accuracy recreation engineer errors may have been included. Imaging studies, laboratory and physical exam results were discussed and reviewed in detail. No major barriers to patient understanding were identified. An opportunity to ask questions regarding the treatment plan was provided. All questions were answered. The patient expressed understanding and agreement with the above treatment plan. The patient is aware they should contact our office by phone for worsening of their current condition or the appearance of new urologic symptoms. Compliance is encouraged with any medications and followup testing that is ordered. It is a privilege to participate in the urologic care of your patient. If you have any questions or concerns regarding treatment for the above conditions, or other urologic issues, please do not hesitate to contact me. The office telephone contact is [phone]. Sincerely, Dr Luciano Pandya MD, [facility] - Urology Compassionate Specialist Care for the Genitourinary System Coding Level of Care Code Est Pt Level 4 (08654) Diagnoses Erectile dysfunction N52.9 Prostate cancer C61
--- OUTSIDE RECORDS SUMMARY | 2025-01-23 14:45 | XMS_ITS | Clinical Summary ---
Author Organization [facility] ity Address [address] [place] [address] Care Team Providers Care Costumer Name Role Phone Unavailable Primary Care Provider Unavailabl e Social History Tobacco Use Types Packs/Day Years Used Date Smoking Tobacco: Never Assessed Sex and Gender Information Value Date Recorded Sex Assigned at Not on file Legal Sex Male 4:04 AM EST Gender Identity Not on file Sexual Orientation Not on file Plan of Treatment Health Maintenance Due Date Last Done Comments DTaP,Tdap,and Td Vaccines (1 - Tdap) 02/20/1979 Pneumococcal Vaccine: 50+ Ye ars (1 of 1 - PCV) 02/20/2010 Zoster Vaccines (1 of 2) 02/20/2010 Cholesterol [...] patient's age to complete this topic Meningococcal B Vacine Aged Out No lo nger eligible based on patient's age to complete [...]
== END 2025-01-23 11:59 | disposition home or self-care (01) ==
PROVIDERS: PCP Internal Medicine; Visit Provider Urology
DX: N52.9 Male erectile dysfunction, unspecified (principal); C61 Malignant neoplasm of prostate
CPT/HCPCS: 99214

== ENCOUNTER → 2025-01-23 11:40 | Outpatient (BNVA) | payer MEDICARE, SELFPAY | PROVIDERS: PCP Internal Medicine; Visit Provider Urology | DX: C61 Malignant neoplasm of prostate (principal); N52.9 Male erectile dysfunction, unspecified; N48.6 Induration penis plastica; N40.1 Benign prostatic hyperplasia with lower urinary tract symptoms; N13.8 Other obstructive and reflux uropathy | CPT/HCPCS: 99212 ==

== ENCOUNTER 2025-05-21 10:25 | Outpatient (REF) | payer MEDICARE, SELFPAY ==
--- OUTSIDE RECORDS SUMMARY | 2025-05-21 11:36 | XMS_ITS | Clinical Summary ---
Author Organization [facility] ity Address [address] [place] [address] Care Team Providers Care Fisheries Technical Officer Name Role Phone Unavailable Primary Care Provider [...] 02/20/2010 Zoster Vaccines (1 of 2) 02/20/2010 Abdominal Aortic Aneurysm (A AA) Screen 10/31/2022 Cholesterol Screening (Lipid Panel) 10/31/2022 Colorectal Cancer Screening: Colonoscopy 10/31/2022 Depression Screening 10/31/2022 Hepatitis C Screening 10/31/2022 Social Influencers of Health Screening 10/31/2022 COVID-19 Vaccine (1 - 2023-2 5 season) 2024 Falls Risk Assessment 02/20/2025 Influenza Vaccine (Season Ended) 2025 RSV Immunization Adult Patie nts (1 - 1-dose 75+ series) 02/20/2035 HIB [...] age to complete this topic Meningococcal B Vaccine Aged Out No l onger eligible based on patient's age to complete [...]
[2025-05-21 12:15] LABS: Prostate Specific Antigen 5.45 ng/mL (<0.05-4.0)
== END 2025-05-21 10:26 | disposition home or self-care (01) ==
LOC: HO.LAB 10:25
PROVIDERS: Visit Provider Urology
DX: C61 Malignant neoplasm of prostate (principal); Z12.5 Encounter for screening for malignant neoplasm of prostate
CPT/HCPCS: 36415; 84153

== ENCOUNTER 2025-05-24 10:25 | Outpatient (AMB) | payer MEDICARE, SELFPAY ==
--- NOTE | 2025-05-24 10:25 | MHC.OFFVIS ---
Intake Visit Reasons: 4m/PSA(psa?) Intake Note: Patient is present for 4M/PSA Urology Medication:TADALAFIL,SILDENAFIL,FINASTERIDE Antibiotic Allergy:SULFA Blood Thinner:NONE PSA 05/21/25: 5.45 Software Business Analyst Required: No Accompanied by: Self / Same As Patient Allergies Sulfa (Sulfonamide Antibiotics) Allergy (Mild, Verified 05/24/25 10:26) Unknown Sulfacet-R Allergy (Unknown, Uncoded 01/23/25 11:45) Unknown HPI Comments Details: Modesto DOWNEY is a very pleasant male. He is a patient of Dr Navarro. He is seen for the following urologic conditions - erectile dysfunction - Peyronie's disease - prostate cancer grade group 2 low volume Four month follow-up 1 mg daily finasteride with decline in PSA Remains on tadalafil 10 mg daily UA 3+ glucose - advised to minimize pancake syrup Interested in penile pump - information provided PSA - 01/22 6.3, 05/22 5.4 Prostate Cancer Grade Group 3, Low Volume disease - 07/21 PSA at diagnosis 5.4 Volume at TRUS 45 g PT1c Histologic type: Prostatic adenocarcinoma, acinar type Levi score: 4+3=7 (left base lateral 5%), 3+3=6 (left mid lateral 20%) % of tissue involved: Less than 5% of all tissue examined Periprostatic fat inv.: Not identified Seminal vesicle inv.: Not identified Perineural inv.: Not identified LVI: Not identified Staging information 08/21 MRI - 1.1 cm anterior stromal lesion PI-RADS 4 well contained Prolaris - cell cycle score 3.3, based on clinical features suggest single modal therapy Erectile dysfunction:? Peyronie's disease stable ?Good response to daily tadalafil ? He presents today for?for continued evaluation and management of erectile dysfunction.? Symptoms have been present for/since?over several years.? Current treatment includes?Viagra/sildenafil.? At this time he experiences erections?12/16 are partial and adequate for vaginal penetration, that undergo rapid detumesence after penetration, HAKEEM 12-16 Mild-Moderate ED.? Currently they are?has a partner who is interested in treatment.? Peyronie's Disease:? Stabilized and curve reduced - still functional ? The patient presents for?further evaluation for penile disorder.? Primary complaint is penile curvature, to the right, dorsally.? At this time he experiences?partial erections sufficient for penetrative intercourse.? [place] has?is possible but painful.? Prior management includes?no treatment to date.? Natural history of Peyronie's and treatment options have been offered with?use of vacuum device protocol, use of inflammatory marine superintendent Review of Systems Const Denies chills and Denies fever(s) Card Reports no additional complaints and Denies syncope Resp Denies cough GI Denies abdominal pain and Denies heartburn Reports as per HPI and Denies change in libido Neuro Denies syncope Psych Denies change in libido Endo Denies change in libido Physical Exam Const General: cooperative, healthy appearing, comfortable and no acute distress Orientation/consciousness: patient oriented x3 HEENT Face and sinus: Yes normal facial exam Mouth: moist mucous membranes Neck Neck: Yes normal visual inspection, Yes full ROM and Yes trachea midline Chest Chest palpation & inspection: normal inspection of the chest Resp Effort & Inspection: normal respiratory effort, able to speak in complete sentences and no respiratory distress GI Inspection: Yes normal to inspection Back/Spine/Pelvis Cervical Spine: normal cervical lordosis Thoracic/Lumbar Spine: thoracic and lumbar spine normal to inspection Skin General skin exam: no rashes or lesions noted Neuro General: patient oriented x3, gait normal, tone normal and moves all extremities Extrem General: Yes normal to inspection and Yes capillary refill normal Assessment & Plan Assessment & Plan (1) Peyronie's disease: Code(s): N48.6 - Induration penis plastica Category: Medical (2) Erectile dysfunction: Code(s): N52.9 - Male erectile dysfunction, unspecified Category: Medical (3) Prostate cancer: Code(s): C61 - Malignant neoplasm of prostate Category: Medical Plan Four month follow-up testosterone and PSA Orders: Orders Testosterone, Total 4 Months C61 - Malignant neoplasm of prostate Prostate Specific Antigen 4 Months C61 - Malignant neoplasm of prostate Patient Instructions: This note is constructed using voice recognition software. While every effort has been made to ensure accuracy assistance coordinator errors may have been included. Imaging studies, laboratory and physical exam results were discussed and reviewed in detail. No major barriers to patient understanding were identified. An opportunity to ask questions regarding the treatment plan was provided. All questions were answered. The patient expressed understanding and agreement with the above treatment plan. The patient is aware they should contact our office by phone for worsening of their current condition or the appearance of new urologic symptoms. Compliance is encouraged with any medications and followup testing that is ordered. It is a privilege to participate in the urologic care of your patient. If you have any questions or concerns regarding treatment for the above conditions, or other urologic issues, please do not hesitate to contact me. The office telephone contact is [phone]. Sincerely, Dr Luciano Pandya MD, [facility] - Urology Compassionate Specialist Care for the Genitourinary System Coding Level of Care Code Est Pt Level 3 (29231) Complex EM visit Add On G2211 Diagnoses Peyronie's disease N48.6 Erectile dysfunction N52.9 Prostate cancer C61
--- OUTSIDE RECORDS SUMMARY | 2025-05-24 11:12 | XMS_ITS | Clinical Summary ---
Author Organization [facility] ity Address [address] [place] [address] Care Team Providers Care Nurse School Name Role Phone Unavailable Primary Care Provider [...]
== END 2025-05-24 11:28 | disposition home or self-care (01) ==
LOC: HO.HUSH 10:26
PROVIDERS: PCP Internal Medicine; Visit Provider Urology
DX: N48.6 Induration penis plastica (principal); N52.9 Male erectile dysfunction, unspecified; C61 Malignant neoplasm of prostate; Z13.9 Encounter for screening, unspecified
CPT/HCPCS: 99213; G2211

== ENCOUNTER → 2025-05-24 10:25 | Outpatient (BNVA) | payer MEDICARE, SELFPAY | PROVIDERS: PCP Internal Medicine; Visit Provider Urology | DX: N48.6 Induration penis plastica (principal); N52.9 Male erectile dysfunction, unspecified; C61 Malignant neoplasm of prostate | CPT/HCPCS: 81003; 99212 ==

== ENCOUNTER 2025-08-27 08:27 | Outpatient (REF) | payer MEDICARE, SELFPAY ==
--- OUTSIDE RECORDS SUMMARY | 2025-08-27 08:46 | XMS_ITS | Clinical Summary ---
Author Organization [facility] Address [address] [place] [address] Phone Care Team Providers Care Sheet Metal Technician Name Role Phone Physician, Pcp Unknown Primary Care Provider Valentina vailable Allergies Active Allergy Reactions Criticality Noted Date Comments Sulfa (Sulfonamide Antibiotics) 06/29 Medications albuterol HFA (PROAIR HFA ; PROVENTIL HFA ; VENTOLIN HFA) 90 mcg/actuation inhaler Inhale 2 puffs by mouth every 4 (four) hours if needed for wheezing. 1 each 07/24/2025 Active predniSONE (DELTASONE) 20 mg tablet Take 3 tablets (60 mg total) by mouth 1 (one) time each day for 5 days. Take all 3 tabs at the same time. 15 each 07/24/2025 07/29/20 25 azithromycin (Zithromax Z-Patrick) 250 mg tablet Take 2 tablets (500 mg total) by mouth 1 (one) time each day for 1 day, THEN 1 tablet (250 mg total) 1 (one) time each day for 4 days. 6 each 07/24/2025 07/29/20 25 Encounters Date Type Department Care Team Description 07/24/2025 8:26 PM EDT - 07/24/2025 10:17 PM EDT Emergency [facility] Emergency [address] [place] [address] Bronchitis (Primary Dx); Fever, unspecified fever cause Discharge Disposition: Home or Self Care from Last 3 Months Social History Tobacco Use Types Packs/Day Years Used Date Smoking Tobacco: Never Assessed Sex and Gender Information Value Date Recorded Sex Assigned at Not on file Legal Sex Male 4:04 AM EST Gender Identity Not on file Sexual Orientation Not on file Obstetrics History Last Filed Vital Signs Vital Sign Reading Time Taken Comments Blood Pressure 152/81 07/24/2025 8:20 PM EDT Pulse 100 07/24/2025 8:20 PM EDT Temperature 36.1 C (97 F) 07/24/2025 8:20 PM EDT Respiratory Rate 18 07/24/2025 8:20 PM EDT Oxygen Saturation 100% 07/24/2025 8:20 PM EDT Inhaled Oxygen Concentration - - Weight 87.1 kg (192 lb) 07/24/2025 4:53 PM EDT Height 172.7 cm (5' 8 ) 07/24/2025 4:53 PM EDT Body Mass Index 29.19 07/24/2025 4:53 PM EDT Plan of Treatment Health Maintenance Due Date Last Done Comments Colorectal Cancer Screening: Colonoscopy 1960 Pneumococcal Vaccine: 50+ Years (1 of 1 - PCV) 02/20/2010 Zoster Vaccines (1 of 2) 02/20/2010 Abdominal Aortic Aneurysm (AAA) Screen 10/31/2022 Cholesterol Screening (Lipid Panel) 10/31/2022 Hepatitis C Screening 10/31/2022 Medicare Annual Wellness Visit 10/31/2022 Social Influencers of Health Screening 10/31/2022 Depression Screening 11/28/2024 Falls Risk Assessment 02/20/2025 Hypertension/CHF/CAD Annual BMP Blood Test 07/24/2025 COVID-19 Vaccine (4 - 2024-2 6 season) 2025 02/16/2022, 07/21/2021, 06/30/2021 Influenza Vaccine (#1) 2025 DTaP,Tdap,and Td Vaccines (2 - Td or Tdap) 10/06/2027 10/06/2017 RSV Immunization Adult Patients (1 - 1-dose 75+ series) 02/20/2035 HIB [...] to complete this topic RSV Immunization Patients Under 20 months Aged Out No longer eligible b ased on patient's age to complete this topic Varicella Vaccines Aged Out No longer eligible based on patient's age to complete this topic Procedures Procedure Name Priority Date/Time Associated Diagnosis Comments XR CHEST 2 VIEWS STAT 07/24/2025 5:05 PM EDT [id number], RSV, FLU A AND B QUALITATIVE RT-PCR, INTERNAL LAB STAT 07/24/2025 4:58 PM EDT from Last 3 Months Results * XR Chest 2 Views (07/24/2025 5:05 PM EDT) Anatomical Region Laterality Modality Body Radiographic Arleen ging 07/25/2025 8:46 AM EDT Impressions 07/25/2025 8:47 AM EDT FINDINGS/IMPRESSION: Lungs are clear. No pleural effusion or pneumothorax. Cardiac silhouette and bones are normal. -------- FINAL REPORT -------- Dictated By: BRAYDON LO Dictated Date: 07/25/2025 08:46 ET Assigned Physician: BRAYDON LO Reviewed and Electronically Signed By: BRAYDON LO Signed Date: 07/25/2025 08:47 ET Workstation ID: [id number] Transcribed By: Self Edit Transcribed Date: 07/25/2025 08:46 ET Narrative 07/25/2025 8:47 AM EDT XR CHEST 2 VIEWS INDICATION: Dyspnea TECHNIQUE: XR CHEST 2 VIEWS COMPARISON: 05/23/2023 Procedure Note Braydon Lo MD - 07/25/2025 XR CHEST 2 VIEWS INDICATION: Dyspnea TECHNIQUE: XR CHEST 2 VIEWS COMPARISON: 05/23/2023 IMPRESSION: FINDINGS/IMPRESSION: Lungs are clear. No pleural effusion orpneumothorax. Cardiac silhouette and bones are normal. -------- FINAL REPORT -------- Dictated By: BRAYDON LO Dictated Date: 07/25/2025 08:46 ET Assigned Physician: BRAYDON LO Reviewed and Electronically Signed By: BRAYDON LO Signed Date: 07/25/2025 08:47 ET Workstation ID: [id number] Transcribed By: Self Edit Transcribed Date: 07/25/2025 08:46 ET Shad Ramirez MD IMG XR PROCEDURES Final Result * [id number], RSV, Influenza A and B qualitative RT-PCR (07/24/2025 4:58 PM EDT) Influenza A PCR Not Detected Not Detected LAB MICROBIOLOGY METHOD 07/24/2025 6:39 PM EDT [facility] Influenza B PCR Not Detected Not Detected LAB MICROBIOLOGY METHOD 07/24/2025 6:39 PM EDT [facility] RSV PCR Not Detected Not Detected LAB MICROBIOLOGY METHOD 07/24/2025 6:39 PM EDT [facility] SARS COV-2 Not Detected Not Detected LAB MICROBIOLOGY METHOD 07/24/2025 6:39 PM EDT [facility] Swab Both anterior nares / Unknown Non-blood Collection / Unknown 07/24/2025 4:58 PM EDT 07/24/2025 5:17 PM EDT Narrative [facility] - 07/24/2025 6:39 PM EDT Disclaimer: Testing was performed using the [employer] GeneXpert Xpress SARS-CoV-2 _Flu_RSV PLUS PCR assay. The manner in which this information is used to guide patient care is the responsibility of the healthcare provider. Results should be correlated with the clinical history, epidemiological data, and other data available to the clinician evaluating the patient. Negative results do not preclude infection. This test has been authorized by the FDA under an Emergency Use Authorization (EUA). This test is only authorized for the duration of time the declaration that circumstances exist justifying the authorization of the emergency use of in vitro diagnostic tests for detection of SARS-CoV-2 virus and/or diagnosis of COVID-19 infection under section 564 (b) (1) of the Act, 21 U.S.C 360bbb-3 (b) (1), unless the authorization is terminated or revoked sooner. Reference Range: Not Detected Fact sheet for Healthcare providers can be found at https://www.fda.gov/media/106270/download. Fact sheet for Healthcare patients can be found at https://www.fda.gov/media/411107/download. us Shad Ramirez MD LAB MICROBIOLOGY - GENERAL ORDER RAMA Final Result [facility] ([facility] [address] [place] [address], [place] [phone] from Last 3 Months Insurance MEDICARE Care Teams Sheet Metal Technician Relationship Specialty Start Date End Date Physician, Pcp Unknown PCP - General 07/24/25
[2025-08-27 09:37] LABS: Prostate Specific Antigen 7.12 ng/mL (<0.05-4.0)
== END 2025-08-27 08:28 | disposition home or self-care (01) ==
LOC: HO.LAB 08:27
PROVIDERS: Visit Provider Urology
DX: C61 Malignant neoplasm of prostate (principal); Z12.5 Encounter for screening for malignant neoplasm of prostate
CPT/HCPCS: 36415; 84153; 84403

== ENCOUNTER 2025-09-12 10:47 | Outpatient (AMB) | payer MEDICARE, SELFPAY ==
--- NOTE | 2025-09-12 11:03 | A.OFFVIS_ITS ---
Intake Visit Reasons: 4mPSA/Testo Intake Note: patient presents today for: 4mo PSA/testo urology medications: finasteride, tadalafil, sildenafil blood thinners: none labs done 08/27/25: PSA 7.12, TT [address] [employer] Required: No Accompanied by: Self / Same As Patient Allergies Sulfa (Sulfonamide Antibiotics) Allergy (Mild, Verified 09/12/25 11:04) Unknown Sulfacet-R Allergy (Unknown, Uncoded 09/12/25 11:04) Unknown HPI Comments Details: [place] DOWNEY is a very pleasant male. He is a patient of Dr Navarro. He is seen for the following urologic conditions - erectile dysfunction - Peyronie's disease - prostate cancer grade group 2 low volume Four month follow-up Slight PSA rise 1 mg daily finasteride with decline in PSA Remains on tadalafil 10 mg daily UA 3+ glucose - advised to minimize pancake syrup PSA - 01/22 6.3, 05/22 5.4, 08/22 7.1 T 600 Prostate Cancer Grade Group 3, Low Volume disease - 07/21 PSA at diagnosis 5.4 Volume at TRUS 45 g PT1c Histologic type: Prostatic adenocarcinoma, acinar type [place] [facility] score: 4+3=7 (left base lateral 5%), 3+3=6 (left mid lateral 20%) % of tissue involved: Less than 5% of all tissue examined Periprostatic fat inv.: Not identified Seminal vesicle inv.: Not identified Perineural inv.: Not identified LVI: Not identified Staging information 08/21 MRI - 1.1 cm anterior stromal lesion PI-RADS 4 well contained Prolaris - cell cycle score 3.3, based on clinical features suggest single modal therapy Erectile dysfunction:? Peyronie's disease stable ?Good response to daily tadalafil ? He presents today for?for continued evaluation and management of erectile dysfunction.? Symptoms have been present for/since?over several years.? Current treatment includes?Viagra/sildenafil.? At this time he experiences erections?12/16 are partial and adequate for vaginal penetration, that undergo rapid detumesence after penetration, HAKEEM 12- 16 Mild-Moderate ED.? Currently they are?has a partner who is interested in treatment.? Peyronie's Disease:? Stabilized and curve reduced - still functional ? The patient presents for?further evaluation for penile disorder.? Primary complaint is penile curvature, to the right, dorsally.? At this time he experiences?partial erections sufficient for penetrative intercourse.? [place] has?is possible but painful.? Prior management includes?no treatment to date.? Natural history of Peyronie's and treatment options have been offered with?use of vacuum device protocol, use of inflammatory recruit instructor Review of Systems Const Denies chills and Denies fever(s) Card Reports no additional complaints and Denies syncope Resp Denies cough GI Denies abdominal pain and Denies heartburn Reports as per HPI and Denies change in libido Neuro Denies syncope Psych Denies change in libido Endo Denies change in libido Physical Exam Const General: cooperative, healthy appearing, comfortable and no acute distress Orientation/consciousness: patient oriented x3 HEENT Face and sinus: Yes normal facial exam Mouth: moist mucous membranes Neck Neck: Yes normal visual inspection, Yes full ROM and Yes trachea midline Chest Chest palpation & inspection: normal inspection of the chest Resp Effort & Inspection: normal respiratory effort, able to speak in complete sentences and no respiratory distress GI Inspection: Yes normal to inspection Back/Spine/Pelvis Cervical Spine: normal cervical lordosis Thoracic/Lumbar Spine: thoracic and lumbar spine normal to inspection Skin General skin exam: no rashes or lesions noted Neuro General: patient oriented x3, gait normal, tone normal and moves all extremities Extrem General: Yes normal to inspection and Yes capillary refill normal Assessment & Plan Assessment & Plan (1) Peyronie's disease: Code(s): N48.6 - Induration penis plastica Category: Medical (2) Erectile dysfunction: Code(s): N52.9 - Male erectile dysfunction, unspecified Category: Medical (3) Prostate cancer: Code(s): C61 - Malignant neoplasm of prostate Category: Medical Plan Six-month follow-up PSA Continue finasteride On demand tadalafil Orders: Orders Prostate Specific Antigen 6 Months C61 - Malignant neoplasm of prostate Medications: Refilled tadalafil On demand medication take 60 minutes before intended activity 20 mg PO ONCE PRN 30 tabs 0RF sexual activity 30 days N52.9 - Male erectile dysfunction, unspecified finasteride 1 mg PO DAILY 90 tabs 1RF 90 days C61 - Malignant neoplasm of prostate, N40.1 - Benign prostatic hyperplasia with lower urinary tract symptoms, N13.8 - Other obstructive and reflux uropathy Patient Instructions: This note is constructed using voice recognition software. While every effort has been made to ensure accuracy size tester errors may have been included. Imaging studies, laboratory and physical exam results were discussed and reviewed in detail. No major barriers to patient understanding were identified. An opportunity to ask questions regarding the treatment plan was provided. All questions were answered. The patient expressed understanding and agreement with the above treatment plan. The patient is aware they should contact our office by phone for worsening of their current condition or the appearance of new urologic symptoms. Compliance is encouraged with any medications and followup testing that is ordered. It is a privilege to participate in the urologic care of your patient. If you have any questions or concerns regarding treatment for the above conditions, or other urologic issues, please do not hesitate to contact me. The office telephone contact is [phone]. Sincerely, Dr Luciano Pandya MD, [facility] - Urology Compassionate Specialist Care for the Genitourinary System Coding Level of Care Code Est Pt Level 3 (92396) Add On Problem Visit Only Diagnoses Peyronie's disease N48.6 Erectile dysfunction N52.9 Prostate cancer C61
== END 2025-09-12 11:27 | disposition home or self-care (01) ==
LOC: HO.HUSH 10:48
PROVIDERS: PCP Internal Medicine; Visit Provider Urology
DX: N48.6 Induration penis plastica (principal); N52.9 Male erectile dysfunction, unspecified; C61 Malignant neoplasm of prostate
CPT/HCPCS: 99213; G2211

== ENCOUNTER → 2025-09-12 10:47 | Outpatient (BNVA) | payer MEDICARE, SELFPAY | PROVIDERS: PCP Internal Medicine; Visit Provider Urology | DX: N52.9 Male erectile dysfunction, unspecified (principal); N48.6 Induration penis plastica; C61 Malignant neoplasm of prostate; R97.21 Rising PSA following treatment for malignant neoplasm of prostate | CPT/HCPCS: 99212 ==